=== PATIENT | male | born 1985 | race African-American/Black ===

== ENCOUNTER 2022-07-11 12:52 | Emergency (ER) | payer SELFPAY ==
[2022-07-11] MEDS ORDERED: Ketorolac Tromethamine 30 MG/ML VIAL ONE (14:25)
[2022-07-11] MEDS ORDERED: Ondansetron PF 4 MG/2 ML Vial ONE (14:25)
[2022-07-11 14:51] LABS: ALT (SGPT) 28 U/L (8-55); AST (SGOT) 26 U/L (5-34); Albumin 4.6 g/dL (3.5-5.0); Alkaline Phosphatase 52 U/L (40-110); Anion Gap 16 mmol/L (10-20); BUN (Urea Nitrogen) 17 mg/dL (8.9-20.6); Bilirubin, Total 0.7 mg/dL (0.2-1.2); Calc. Creatinine Clearance 0 mL/min (70-130); Calcium 9.6 mg/dL (7.8-10.44); Carbon Dioxide 25 mmol/L (22-29); Chloride 106 mmol/L (98-107); Estimated GFR 65; Globulin 3.2 g/dL (2.4-3.5); Glucose 106 mg/dL (70-105); Lipase 30 U/L (8-78); Potassium 4.6 mmol/L (3.5-5.1); Protein, Total 7.8 g/dL (6.0-8.3); Sodium 142 mmol/L (136-145)
[2022-07-11 15:49] LABS: #Monocytes 0.3 10x3/uL (0.0-1.1); #Neutrophils 7.4 10x3/uL (1.5-8.4); %Basophils 0.1 % (0.0-2.0); %Lymphocytes 4.8 % (18.0-47.0); %Monocytes 3.2 % (0.0-10.0); %Neutrophils 91.8 % (40.0-75.0); Hemoglobin 14.1 g/dL (13.5-17.5); Mean Corpuscular Hemoglobin 26.2 pg (27.0-33.0); Mean Corpuscular Volume 81.6 fl (81.2-95.1); Mean Platelet Volume 9.8 fl (7.4-10.4); Platelet Count 192 10x3/uL (150-450); RBC Distribution Width 13.6 % (11.5-14.5); Red Blood Cell (RBC) Count 5.39 10x6/uL (4.32-5.72); White Blood Cell (WBC) Count 8.1 10x3/uL (3.5-10.5)
== END 2022-07-11 16:20 | disposition home or self-care (01) ==
LOC: CSHERS 12:52
DX: R11.2 Nausea with vomiting, unspecified (principal)
CPT/HCPCS: 36415; 80053; 83690; 85025; 96361; 96374; 96375; J1885; J2405

== ENCOUNTER 2023-04-11 01:53 | Emergency (ER) | payer OTHER, SELFPAY ==
[2023-04-11] MEDS ORDERED: Ketorolac Tromethamine 30 MG/ML VIAL ONE (02:17)
== END 2023-04-11 03:10 | disposition home or self-care (01) ==
LOC: CSHERS 01:53
DX: K08.409 Partial loss of teeth, unspecified cause, unspecified class (principal); G89.18 Other acute postprocedural pain
CPT/HCPCS: 96372; 99282; J1885

== ENCOUNTER 2023-07-24 09:16 | Emergency (ER) | payer OTHER | END 2023-07-24 10:45 | disposition home or self-care (01) | LOC: CSHERS 09:16 | DX: S16.1XXA Strain of muscle, fascia and tendon at neck level, initial encounter (principal); S33.5XXA Sprain of ligaments of lumbar spine, initial encounter; R03.0 Elevated blood-pressure reading, without diagnosis of hypertension; V29.99XA Rider (driver) (passenger) of other motorcycle injured in unspecified traffic accident, initial encounter | CPT/HCPCS: 99283 ==